=== PATIENT | male | born 1985 | race Caucasian/White ===

== ENCOUNTER → 2017-05-17 | Outpatient (CLI) | payer MEDICARE, MEDICAID ==
[~2017-05-17] MED LIST: BACTROBAN2% TP; BENZTROPINE ME0.5 MG PO; BETHANECHOL CHL25 MG PO; BIAXIN500 MG PO; CEFDINIR 300MG300 MG PO; CELECOXIB200 MG PO; CITALOPRAM HYDR40 MG; CONCERTA27 MG PO; CYCLOBENZAPRINE10 M2 PO; DARVOCET-N 1001 EACH PO; DEXAMETHASONE OP; FLEXERIL10 MG PO; FLOVENT 11110 MCG/PU IH; FSBS; INDOMETHACIN 2525 MG PO; KEFLEX 500MG.500 MG PO; MEDROL 4MG. DOSE4 MG PO; NAPROSYN 500MG500 MG PO; NAPROXEN SODIU500 MG PO; PAIN PILL PO; PREDNISONE 10MG10 MG PO; PROAIR HFA0.09 MG/AC IH; PROPRANOLOL HCL10 MG PO; RESPERDAL PO; RISPERDAL2 MG PO; SEPTRA DS 800 M1 TAB PO; TESSALON PERLE100 MG PO; TRILEPTAL300 M1 PO; TRILEPTAL300 MG PO; VICODIN 5/500 T1 TAB PO; ZOLOFT100 MG PO; [UNRECOGNIZED DRUG - OTHER] OP
--- NOTE | 2017-05-17 15:55 | RADIOLOGY REPORT PS360 ---
PELVIS AP ONLY HISTORY: S/P FALL 1 WEEK AGO, LBP, LT HIP PAIN Patient Age: 31 years: Male Ordering Physician: Grayson Watts MD TECHNIQUE: AP osseous pelvis COMPARISON : No previous pelvis studies. Lumbar spine from today utilized FINDINGS Osseous pelvis is intact. No fracture. AP view of hips unremarkable. The joint spaces are fairly well maintained bilaterally. Borderline narrowing medial superior right hip joint space. The sacrum intact. The iliac bone intact. Superior and inferior ramus intact. Femoral head and neck intact bilaterally. IMPRESSION: Osseous pelvis intact no fractures. . No acute findings
--- NOTE | 2017-05-17 15:58 | RADIOLOGY REPORT PS360 ---
LUMBAR SPINE 5 VIEWS HISTORY: S/P FALL 1 WEEK AGO, LBP, LT HIP PAIN back pain left hip pain fall one week ago Patient Age: 31 years: Male Ordering Physician: Grayson Watts MD TECHNIQUE: 5 view lumbar spine series COMPARISON : None FINDINGS The lumbar vertebral bodies are intact with no compression fracture nor lesion evident. The pedicles transverse processes appear intact. Lucency lucent line due to gas project over the superior left sacrum on this study but not evident on the AP pelvis from today the pedicles transverse processes and SI joints unremarkable. AP sacrum unremarkable. No spondylolysis nor listhesis. Hip joint spaces well-maintained and included. Sacrum intact coccyx unremarkable. On this study is not evident on the pelvic film from today IMPRESSION: Lumbar spine intact no fracture. Intervertebral disc spaces are well-maintained. Normal alignment.
== END ==
LOC: RAD 15:17
DX: M54.5 Low back pain (principal); M25.552 Pain in left hip

== ENCOUNTER 2017-05-25 12:16 | Emergency (ER) | payer MEDICARE, MEDICAID ==
--- OUTSIDE RECORDS SUMMARY | 2017-05-25 12:21 | External Medical Summary Rpt | CCD ---
Author Author [employer] Organization [employer] Address Unknown Phone Unavailable Purpose Continuity of Care Document - through 2016
--- OUTSIDE RECORDS SUMMARY | 2017-05-25 12:21 | External Medical Summary Rpt | CCD ---
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 Name Role Phone Thuan Madera MD, Unavailable Unavailable Thuan Harper MD, Unavailable Unavailable Agnes Harper MD Purpose Continuity of Care Document - 05-17-2013 through 2016 Problems Code Diagnosis DOS Provider Status 305.1 305.1 06-21-2013 [place] TOBACCO USE [facility] 493.90 493.90 06-21-2013 [place] [facility] 844.9 844.9 06-21-2013 [place] SPRAIN [facility] KNEE & LEG [facility] NOS 682.2 682.2 05-17-2013 [place] CELLULITIS [facility] Allergies, Adverse Reactions, Alerts Type Drug Allergy Adverse Reaction to Substance Substance Reaction Severity PCN (penicillin) I-RASH Intermediate Clinical Alert Notifications Alert Asthma: no influenza vaccine in the last 365 days Medications Na ND Rx Da Fi Fi Am Da Di Ph RX Ph St me C No te ll ll ou ys ag ar # ys at rm s nt no ma ic us Or Da si cy ia de te s n re d STARK 51 11 0 No LF 07 -1 AM 90 7- Lo ET 12 20 ng HO 82 13 er XA 0 ZO Ac LE ti -T ve MP DS TA BL ET LI 00 11 0 No DO 40 -1 CA 94 7- Lo IN 27 20 ng E 60 13 er HC 1 L Ac 1% ti ve AL Vital Signs 06-21-2013 20:07 Name Value Interpretat Reference Comment ion Range Body 98 [degF] Temperature BP 78 mm[Hg] Diastolic BP Systolic 116 mm[Hg] Heart 82 /min Rate/Pulse O2% 95 % Respiratory 20 /min Rate 05-17-2013 20:51 Name Value Interpretat Reference Comment ion Range Body 97.9 [degF] Temperature BP 83 mm[Hg] Diastolic BP Systolic 129 mm[Hg] Heart 78 /min Rate/Pulse O2% 93 % Respiratory 18 /min Rate Results Labs Lab Lab Date Result Refere Interp Status Commen Order Detail nces retati t Range on Bacteria Ur Cult (12-11-2016 14:29) Bacteri [id number] complet a XXX 017 1 ed Anaerob 14:29 Staphyl e+Aerob ococcus e Cult epiderm idis (organi sm) SCT SEPI STAPHYL OCOCCUS EPIDERM IDIS L Comment: >100,000 cfu/ml Staphylococcus epidermidis (organism) CC XXX NOTAP complet VC-aCnc 017 NOT ed 14:29 APPLICA BLE L Procedures Procedure DOS Code Location Performer Comment OTHER 86.04 Jada Tony SKIN & Leroy WILDE SUBQ I D Encounters Encounter Start End Date Code Location Performer Type Date Emergency MANSOOR Madera MD (ER) 3 19:57 3 20:08 [facility] Emergency MANSOOR Harper MD (ER) 3 20:27 3 20:52 [facility]
--- OUTSIDE RECORDS SUMMARY | 2017-05-25 12:21 | External Medical Summary Rpt | CCD ---
Author Author , BRIGIDO Organization BRIGIDO Address Unknown Phone [email or web address] Care Team Providers Care Telecommunications Equipment Installer Name Role Phone Thuan Madera MD, Unavailable Unavailable Thuan Harper MD, Unavailable Unavailable Agnes Harper MD Purpose Continuity of Care Document - 05-17-2013 through 2016 Problems Code Diagnosis DOS Provider Status 305.1 305.1 06-21-2013 [place] TOBACCO USE [facility] 493.90 493.90 06-21-2013 [place] [facility] 844.9 844.9 06-21-2013 [place] SPRAIN [facility] KNEE & LEG [facility] NOS 682.2 682.2 05-17-2013 [place] CELLULITIS [facility] Allergies, Adverse Reactions, Alerts Type Drug [...] on Bacteria Ur Cult (12-11-2016 14:29) Bacteri [id number] complet a XXX 017 1 ed Anaerob [...] Madera MD (ER) 3 19:57 3 20:08 [facility] Emergency MANSOOR Harper MD (ER) 3 20:27 3 20:52 [facility]
--- OUTSIDE RECORDS SUMMARY | 2017-05-25 12:21 | External Medical Summary Rpt | CCD ---
Author Author , BRIGIDO Organization BRIGID[employer] Address Unknown Phone [email or web address] Immunization Name Date Rout CVX Reac Dose Comm Prov Is Faci e tion ent ider Refu lity Give sed n PPV2 10-1 33 999 Hist H149 No H149 3 1-20 oric 12 al Info rmat ion - Sour ce Unsp ecif ied Hep 10-2 8 999 Hist H149 No H149 B, 0-20 oric ped/ 00 al adol Info rmat ion - Sour ce Unsp ecif ied Hep 05-1 8 999 Hist H149 No H149 B, 1-20 oric ped/ 00 al adol Info rmat ion - Sour ce Unsp ecif ied Hep 03-2 8 999 Hist H149 No H149 B, 0-20 oric ped/ 00 al adol Info rmat ion - Sour ce Unsp ecif ied Td 03-2 9 999 Hist H149 No H149 (anabell 0-20 oric lt), 00 al Info adso rmat rbed ion - Sour ce Unsp ecif ied MMR 07-1 3 999 Hist H149 No H149 7-19 oric 96 al Info rmat ion - Sour ce Unsp ecif ied
--- OUTSIDE RECORDS SUMMARY | 2017-05-25 12:21 | External Medical Summary Rpt | CCD ---
Author Author , BRIGIDO Organization BRIGIDO Address Unknown Phone [email or web address] Immunization Name Date Rout CVX Reac Dose [...]
--- OUTSIDE RECORDS SUMMARY | 2017-05-25 12:22 | External Medical Summary Rpt ---
Author Author BRIGIDO Quiroz, BRIGIDO Quiroz Organization [employer] Address Unknown Phone Unavailable
== END 2017-05-25 12:31 | disposition left against medical advice (07) ==
LOC: UTC 12:16
DX: Z53.21 Procedure and treatment not carried out due to patient leaving prior to being seen by health care provider (principal)